=== PATIENT | male | born 1965 | race Caucasian/White ===

== ENCOUNTER 2017-12-06 16:38 | Inpatient (IN) | payer SELFPAY ==
[2017-12-06] VITALS (13 sets, daily range): BP systolic 127–203; BP diastolic 59–108; PULSE 52–65; RESP 16–18; TEMP 97.7; O2SAT 95–100
[~2017-12-06] VITALS: Ht 185.4 cm; Wt 100.5 kg
[~2017-12-06 16:38] MED LIST: IBUP-238 PO; PERC10TA27 PO; PRED20 PO; Z.0.NO CURRENT MEDS
[2017-12-06 18:14] LABS: AUTOMATED NEUTROPHIL # 12.5 TH/MM3 (1.8-7.7); BASOPHIL % 0.2 % (0.0-2.0); EOSINOPHIL # 0.1 TH/MM3 (0-0.4); EOSINOPHIL % 0.5 % (0.0-4.0); HEMATOCRIT 44.5 % (39.0-51.0); HEMOGLOBIN 14.6 GM/DL (13.0-17.0); LYMPH % 8.1 % (9.0-44.0); LYMPHOCYTE # 1.2 TH/MM3 (1.0-4.8); MEAN CELL VOLUME 91.9 FL (80.0-100.0); MEAN CORPUSCULAR HEMOGLOBIN 30.1 PG (27.0-34.0); MEAN CORPUSCULAR HGB CONC 32.7 % (32.0-36.0); MEAN PLATELET VOLUME 7.9 FL (7.0-11.0); MONO % 4.5 % (0.0-8.0); MONOCYTE # 0.6 TH/MM3 (0-0.9); NEUT % 86.7 % (16.0-70.0); PLATELET COUNT 289 TH/MM3 (150-450); RED BLOOD COUNT 4.84 MIL/MM3 (4.50-5.90); RED CELL DISTRIBUTION WIDTH 12.7 % (11.6-17.2); WHITE BLOOD COUNT 14.4 TH/MM3 (4.0-11.0)
[2017-12-06] MEDS ORDERED: SODIUM CHLOR 0.9% 1000 ML INJ 1,000 ML IV SCH (18:16)
[2017-12-06 18:24] LABS: CHLORIDE 101 MEQ/L (98-107); SODIUM (NA) 135 MEQ/L (136-145)
[2017-12-06 18:27] LABS: BICARBONATE 24.5 MEQ/L (21.0-32.0); LIPASE 104 U/L (73-393)
[2017-12-06 18:28] LABS: BLOOD UREA NITROGEN 21 MG/DL (7-18); GLUCOSE,RANDOM 139 MG/DL (74-106)
[2017-12-06 18:29] LABS: PROTHROMBIN TIME - PATIENT 10.6 SEC (9.8-11.6)
[2017-12-06 18:30] LABS: ALT (GPT) 35 U/L (12-78); AST (GOT) 30 U/L (15-37)
[2017-12-06] MEDS ORDERED: ATROPINE/SCOPOLAM/HYOSCYAM/PB ELIXIR 10 ML CUP PO ONE (18:30)
[2017-12-06] MEDS ORDERED: FAMOTIDINE 20 MG/2 ML VIAL IV PUSH ONE (18:30)
[2017-12-06] MEDS ORDERED: SODIUM CHLORIDE 0.9% FLUSH 10 ML FLUSH IV FLUSH PRN ×2 (18:30→19:30)
[2017-12-06] MEDS ORDERED: ALUMINUM/MAGNESIUM/SIMETH 30 ML CUP PO ONE (18:30)
[2017-12-06 18:31] LABS: GLOMERULAR FILTRATION RATE 78 ML/MIN (>89)
[2017-12-06 18:32] LABS: TOTAL BILIRUBIN ADULT 0.6 MG/DL (0.2-1.0); TOTAL PROTEIN 7.8 GM/DL (6.4-8.2)
[2017-12-06 18:33] LABS: ALKALINE PHOSPHATASE 79 U/L (45-117)
[2017-12-06 18:35] LABS: TROPONIN I 0.15 NG/ML (0.02-0.05)
--- NOTE | 2017-12-06 19:11 | PD ---
HPI Chief Complaint: Chest Pain Time Seen by Provider: 18:04 Travel History International Travel<30 days: No Contact w/Intl Traveler<30days: No Traveled to known affect area: No History of Present Illness HPI 52-year-old male complains of epigastric abdominal pain, substernal chest pain. Patient states that he has intermittent symptoms for the past week. Patient states that the symptoms usually last about 15 minutes and resolved completely. Patient states the symptoms not associated with exertion. Patient states that she started having burning epigastric pains abdominal pain with radiation to both arms and to the back and neck today. Patient states that the symptomatic worse than usual. Patient denies any coughing congestion fever chills. Patient complains of indigestion feeling. Patient denies any nausea vomiting. Patient states that he had diaphoresis with the pain. Patient denies any history of CAD. Patient denies history of hypertension, diabetes, hyperlipidemia. Patient is a nonsmoker. Patient denies family history of heart disease. PFSH Past Medical History Medical History: Denies Significant Hx Diminished Hearing: No Tetanus Vaccination: > 5 Years Influenza Vaccination: No Past Surgical History Other Surgery: Yes (spinal SX) Social History Alcohol Use: No Tobacco Use: No Substance Use: No Allergies-Medications (Allergen,Severity, Reaction): Coded Allergies: No Known Allergies (Verified Adverse Reaction, Unknown, 12/06/17) Reported Meds & Prescriptions Reported Meds & Active Scripts Active Review of Systems General / Constitutional: No: Fever Eyes: No: Visual changes HENT: No: Headaches Cardiovascular: Positive: Chest Pain or Discomfort Respiratory: No: Shortness of Breath Gastrointestinal: Positive: Abdominal Pain Genitourinary: No: Dysuria Musculoskeletal: No: Pain Skin: No Rash Neurologic: No: Weakness Psychiatric: No: Depression Endocrine: No: Polydipsia Hematologic/Lymphatic: No: Easy Bruising Physical Exam Narrative GENERAL: Well-nourished, well-developed patient. SKIN: Focused skin assessment warm/dry. HEAD: Normocephalic. EYES: No scleral icterus. No injection or drainage. NECK: Supple, trachea midline. No JVD or lymphadenopathy. CARDIOVASCULAR: Regular rate and rhythm without murmurs, gallops, or rubs. RESPIRATORY: Breath sounds equal bilaterally. No accessory muscle use. GASTROINTESTINAL: Abdomen soft, nondistended. Patient has mild to moderate tenderness and palpation epigastric area. No rebound tenderness. No mass. MUSCULOSKELETAL: No cyanosis, or edema. BACK: Nontender without obvious deformity. No CVA tenderness. Neurologic exam normal. Data Data Last Documented VS Vital Signs Date Time Temp Pulse Resp B/P (MAP) Pulse Ox O2 Delivery O2 Flow Rate FiO2 12/06/17 18:19 183/100 (127) 12/06/17 17:56 65 18 98 Room Air 12/06/17 16:48 97.7 Orders Orders Electrocardiogram (12/06/17 16:49) Electrocardiogram (12/06/17 18:04) Complete Blood Count With Diff (12/06/17 18:04) Comprehensive Metabolic Panel (12/06/17 18:04) Creatine Kinase (Cpk) (12/06/17 18:04) Troponin I (12/06/17 18:04) Prothrombin Time / Inr (Pt) (12/06/17 18:04) Act Partial Throm Time (Ptt) (12/06/17 18:04) Lipase (12/06/17 18:04) Chest, Single Ap (12/06/17 18:04) Iv Access Insert/Monitor (12/06/17 18:04) Ecg Monitoring (12/06/17 18:04) Oximetry (12/06/17 18:04) Sodium Chlor 0.9% 1000 Ml Inj (Ns 1000 M (12/06/17 18:16) Sodium Chloride 0.9% Flush (Ns Flush) (12/06/17 18:30) Famotidine Inj (Pepcid Inj) (12/06/17 18:30) Al-Mag Hy-Si 40-40-4 Mg/Ml Liq (Mag-Al P (12/06/17 18:30) Dnxlg-Umrkan-Wmzfnk-Pb Liq ( Liq (12/06/17 18:30) Labs Laboratory Tests Test 12/06/17 18:00 White Blood Count 14.4 TH/MM3 Red Blood Count 4.84 MIL/MM3 Hemoglobin 14.6 GM/DL Hematocrit 44.5 % Mean Corpuscular Volume 91.9 FL Mean Corpuscular Hemoglobin 30.1 PG Mean Corpuscular Hemoglobin Concent 32.7 % Red Cell Distribution Width 12.7 % Platelet Count 289 TH/MM3 Mean Platelet Volume 7.9 FL Neutrophils (%) (Auto) 86.7 % Lymphocytes (%) (Auto) 8.1 % Monocytes (%) (Auto) 4.5 % Eosinophils (%) (Auto) 0.5 % Basophils (%) (Auto) 0.2 % Neutrophils # (Auto) 12.5 TH/MM3 Lymphocytes # (Auto) 1.2 TH/MM3 Monocytes # (Auto) 0.6 TH/MM3 Eosinophils # (Auto) 0.1 TH/MM3 Basophils # (Auto) 0.0 TH/MM3 CBC Comment DIFF FINAL Differential Comment Prothrombin Time 10.6 SEC Prothromb Time International Ratio 1.0 RATIO Activated Partial Thromboplast Time 22.9 SEC Blood Urea Nitrogen 21 MG/DL Creatinine 1.00 MG/DL Random Glucose 139 MG/DL Total Protein 7.8 GM/DL Albumin 4.0 GM/DL Calcium Level 9.0 MG/DL Alkaline Phosphatase 79 U/L Aspartate Amino Transf (AST/SGOT) 30 U/L Alanine Aminotransferase (ALT/SGPT) 35 U/L Total Bilirubin 0.6 MG/DL Sodium Level 135 MEQ/L Potassium Level 4.0 MEQ/L Chloride Level 101 MEQ/L Carbon Dioxide Level 24.5 MEQ/L Anion Gap 10 MEQ/L Estimat Glomerular Filtration Rate 78 ML/MIN Total Creatine Kinase 297 U/L Troponin I 0.15 NG/ML Lipase 104 U/L MDM Medical Decision Making Medical Screen Exam Complete: Yes Emergency Medical Condition: Yes Medical Record Reviewed: Yes Interpretation(s) EKG shows sinus rhythm nonspecific ST-T wave changes. CBC WBC 14.4. 86 neutrophil. BUN 21. Troponin 0.15. Differential Diagnosis Differential diagnosis including gastritis, PUD, pancreatitis, angina, NV, PE, pneumothorax. Narrative Course 52-year-old male with epigastric pain, substernal chest pain with radiation to both arms and to the neck area. I spoke with Dr. Rojas, social security specialist on-call. Advised [facility] admission and serial EKG and cardiac enzyme and heparin and nothing mouth after midnight for possible cardiac catheter in a.m. Diagnosis Primary Impression: NSTEMI (non-ST elevated myocardial infarction) Admitting Information Admitting Physician Requests: Admit Agapito Weaver MD Dec 06, 2017 19:11
[2017-12-06] MEDS ORDERED: HEPARIN-D5W 25,000 U/250 ML 250 ML IV PRN (19:15)
[2017-12-06] MEDS ORDERED: HEPARIN SODIUM - IV 10,000 UNITS/10 ML VIAL IV ONE (19:15)
[2017-12-06] MEDS ORDERED: NITROGLYCERIN 2% OINT 1 GM PACKET TOPICAL ONE (19:15)
[2017-12-06] MEDS ORDERED: NITROGLYCERIN 0.4 MG SL 25 TABS/BTL SL PRN (19:30)
--- NOTE | 2017-12-06 19:36 | RADRPT ---
EXAM DATE/TIME: 12/06/2017 18:43 [facility] COMPARISON: No previous studies available for comparison. INDICATIONS : Chest pain. MEDICAL HISTORY : None. SURGICAL HISTORY : None. ENCOUNTER: Initial ACUITY: 1 day PAIN SCORE: 8/10 LOCATION: Bilateral chest FINDINGS: A single view of the chest demonstrates the lungs to be symmetrically aerated without evidence of mas s, infiltrate or effusion. The cardiomediastinal contours are unremarkable. Osseous structures are intact. CONCLUSION: 1. No active disease. Donald Connelly MD on December 06, 2017 at 19:33 Board Certified Radiologist. This report was verified electronically.
[2017-12-06] MEDS: FAMOTIDINE 20 MG TAB PO SCH (21:31)
[2017-12-06] MEDS: SODIUM CHLORIDE 0.9% FLUSH 10 ML FLUSH IV FLUSH SCH (21:32)
[2017-12-06] MEDS: MORPHINE SULFATE 2 MG/ML INJ IV PUSH PRN (23:02)
[2017-12-07] VITALS (14 sets, daily range): BP systolic 135–158; BP diastolic 67–84; PULSE 50–62; RESP 12–16; TEMP 97.9–98.3; O2SAT 96–99
--- NOTE | 2017-12-07 00:30 | EKG ---
Date Performed: 12/06/2017 Time Performed: 18:08:01 PTAGE: 52 years EKG: Sinus rhythm NORMAL ECG PREVIOUS TRACING : 12/06/2017 16.52 Since the prior tracing, there has been no significant lugo DOCTOR: Laci Quintero Interpretating Date/Time 12/07/2017 00:30:15
[2017-12-07 00:36] LABS: TROPONIN I 2.06 NG/ML (0.02-0.05)
--- NOTE | 2017-12-07 00:38 | EKG ---
Date Performed: 12/06/2017 Time Performed: 16:52:01 PTAGE: 52 years EKG: Sinus rhythm POSSIBLE LEFT VENTRICULAR HYPERTROPHY MINIMAL ST ELEVATION INFERIORLY ABNORMAL ECG NO PREVIOUS TRACING DOCTOR: Laci Quintero Interpretating Date/Time 12/07/2017 00:37:17
[2017-12-07] MEDS ORDERED: ASPI-516 CHEW (01:06)
[2017-12-07] MEDS ORDERED: IBUP1TAB7 PO (01:06)
[2017-12-07] MEDS ORDERED: NITROGLYCERIN-D5W 50 MG/250 ML 250 ML IV PRN (01:30)
[2017-12-07] MEDS: MORPHINE SULFATE 2 MG/ML INJ IV PUSH PRN ×2 (01:47→07:35)
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
[2017-12-07] MEDS ORDERED: LORazepam 0.5 MG TAB PO ONE (02:45)
[2017-12-07 03:33] LABS: AUTOMATED NEUTROPHIL # 8.4 TH/MM3 (1.8-7.7); BASOPHIL % 0.3 % (0.0-2.0); EOSINOPHIL % 0.4 % (0.0-4.0); HEMOGLOBIN 13.8 GM/DL (13.0-17.0); LYMPH % 13.9 % (9.0-44.0); LYMPHOCYTE # 1.5 TH/MM3 (1.0-4.8); MEAN CORPUSCULAR HEMOGLOBIN 31.7 PG (27.0-34.0); MEAN CORPUSCULAR HGB CONC 35.2 % (32.0-36.0); MEAN PLATELET VOLUME 7.6 FL (7.0-11.0); MONO % 6.7 % (0.0-8.0); MONOCYTE # 0.7 TH/MM3 (0-0.9); NEUT % 78.7 % (16.0-70.0); PLATELET COUNT 277 TH/MM3 (150-450); RED BLOOD COUNT 4.33 MIL/MM3 (4.50-5.90); RED CELL DISTRIBUTION WIDTH 13.1 % (11.6-17.2); WHITE BLOOD COUNT 10.7 TH/MM3 (4.0-11.0)
[2017-12-07 03:51] LABS: BICARBONATE 27.2 MEQ/L (21.0-32.0); CALCIUM 8.8 MG/DL (8.5-10.1); CREATININE 0.91 MG/DL (0.60-1.30)
[2017-12-07 06:15] LABS: BILIRUBIN, URINE NEG (NEG); BLOOD, URINE NEG (NEG); GLUCOSE,URINE NEG (NEG); KETONE, URINE NEG (NEG); MUCUS URINE FEW /lpf (OCC); NITRITE,URINE NEG (NEG); URINE COLOR YELLOW (YELLW/STRAW); URINE LEUKOCYTE ESTERASE NEG (NEG)
[2017-12-07 06:57] LABS: BICARBONATE 25.4 MEQ/L (21.0-32.0); CALCIUM 8.7 MG/DL (8.5-10.1)
[2017-12-07 06:58] LABS: CREATININE 0.78 MG/DL (0.60-1.30)
[2017-12-07 07:29] LABS: TROPONIN I 4.99 NG/ML (0.02-0.05)
[2017-12-07] MEDS ORDERED: IOHEXOL 350 MG/ML 100 ML BTL (for Cath Lab) OTHER ONE (07:58)
[2017-12-07] MEDS ORDERED: ASPIRIN 325 MG TAB PO SCH (09:00)
[2017-12-07] MEDS: FAMOTIDINE 20 MG TAB PO SCH ×3 (09:00→20:49)
[2017-12-07] MEDS: SODIUM CHLORIDE 0.9% FLUSH 10 ML FLUSH IV FLUSH SCH ×2 (09:00→20:47)
--- NOTE | 2017-12-07 09:23 | HHI.PR ---
Subjective Remarks f/u for NSTEMI Patient stated that he had some chest pain earlier this morning he was given morphine in which the chest pain resolved but he is very drowsy. At the moment no chest pain. Denied any soreness of breathing, palpitation, lightheaded and his dizziness. Patient has no other complaints. Objective Vitals Vital Signs Date Time Temp Pulse Resp B/P (MAP) Pulse Ox O2 Delivery O2 Flow Rate FiO2 12/07/17 08:39 14 12/07/17 08:00 97.9 57 14 158/83 (108) 98 12/07/17 07:00 Nasal Cannula 2.00 12/07/17 07:00 53 12/07/17 07:00 60 157/93 12/07/17 06:44 61 157/82 12/07/17 06:30 60 161/88 12/07/17 06:00 60 176/101 12/07/17 05:45 55 167/97 12/07/17 05:00 98.2 16 99 12/07/17 05:00 60 172/91 12/07/17 04:00 Nasal Cannula 2.00 12/07/17 04:00 66 158/74 12/07/17 03:15 54 152/79 12/07/17 03:00 60 148/77 12/07/17 02:46 56 154/80 12/07/17 02:31 57 139/78 12/07/17 02:00 Nasal Cannula 2.00 12/07/17 01:30 50 12/07/17 00:45 59 12/07/17 00:45 98.1 52 15 149/79 (102) 97 12/07/17 00:05 58 16 146/75 (98) 96 12/06/17 23:30 60 16 155/78 (103) 96 Room Air 12/06/17 23:00 58 16 151/84 (106) 97 Room Air 12/06/17 22:30 58 16 159/77 (104) 97 Room Air 12/06/17 22:00 52 18 149/79 (102) 100 Room Air 12/06/17 21:30 59 16 146/75 (98) 98 Room Air 12/06/17 21:00 64 18 127/59 (81) 96 Room Air 12/06/17 20:30 56 16 176/88 (117) 97 Room Air 12/06/17 20:00 60 18 183/89 (120) 95 Room Air 12/06/17 19:09 63 18 97 Room Air 12/06/17 19:09 63 18 181/97 (125) 97 Room Air 12/06/17 18:19 183/100 (127) 12/06/17 17:56 65 18 188/100 (129) 98 Room Air 12/06/17 17:32 16 97 Room Air 12/06/17 17:20 17 97 Room Air 12/06/17 16:48 97.7 63 16 203/108 (139) 97 I/O 12/06/17 12/06/17 12/06/17 12/07/17 12/07/17 12/07/17 07:00 15:00 23:00 07:00 15:00 23:00 Intake Total 1000 ml Output Total 800 ml Balance 200 ml Intake IV Total 1000 ml Output Urine Total 800 ml Result Diagram: 12/07/17 0255 12/07/17 0539 Objective Remarks GENERAL: in NAD CARDIOVASCULAR: Regular rate and rhythm without murmurs, gallops, or rubs. RESPIRATORY: Breath sounds equal bilaterally. No accessory muscle use. GASTROINTESTINAL: Abdomen soft, non-tender, nondistended. MUSCULOSKELETAL: No cyanosis, or edema. BACK: Nontender without obvious deformity. No CVA tenderness. Medications and IVs Current Medications Sodium Chloride 1,000 ml @ 125 mls/hr Q8H IV Last administered on 12/06/17at 18 :31; Start 12/06/17 at 18:16; Stop 12/07/17 at 02:15; Status DC Sodium Chloride (NS Flush) 2 ml UNSCH PRN IV FLUSH FLUSH AFTER USING IV ACCESS ; Start 12/06/17 at 18:30; Stop 12/06/17 at 20:16; Status DC Famotidine (Pepcid Inj) 20 mg ONCE ONCE IV PUSH Last administered on at 18:31; Start 12/06/17 at 18:30; Stop 12/06/17 at 18:39; Status DC Al Hydrox/Mg Hydrox/Simethicone (Mag-Al Plus Susp Liq) 30 ml ONCE ONCE PO Last administered on 12/06/17at 18:31; Start 12/06/17 at 18:30; Stop 12/06/17 at 18:39; Status DC Atropine/Hyoscyam/ Phenobarb/Scopol ( Liq) 10 ml ONCE ONCE PO Last administered on 12/06/17at 18:31; Start 12/06/17 at 18:30; Stop 12/06/17 at 18:39 ; Status DC Heparin Sodium (Porcine) (Heparin Inj) 4,000 units ONCE ONCE IV Last administered on 12/06/17at 19:52; Start 12/06/17 at 19:15; Stop 12/06/17 at 19:16 ; Status DC Heparin Sodium/ Dextrose 250 ml @ 10 mls/hr TITRATE PRN IV Coagulation Management Last administered on 12/06/17at 20:57; Start 12/06/17 at 19:15 Nitroglycerin (Nitroglycerin 2% Oint) 1 inch ONCE ONCE TOPICAL Last administered on 12/06/17at 19:51; Start 12/06/17 at 19:15; Stop 12/06/17 at 19:16 ; Status DC Sodium Chloride (NS Flush) 2 ml BID IV FLUSH Last administered on 12/06/17at 21: 32; Start 12/06/17 at 21:00 Sodium Chloride (NS Flush) 2 ml UNSCH PRN IV FLUSH FLUSH AFTER USING IV ACCESS ; Start 12/06/17 at 19:30 Aspirin (Aspirin) 325 mg DAILY PO ; Start 12/07/17 at 09:00 Nitroglycerin (Nitrostat Sl) 0.4 mg Q5M PRN SL ANGINA; Start 12/06/17 at 19:30 Acetaminophen (Tylenol) 500 mg Q4H PRN PO HEADACHE; Start 12/06/17 at 19:30 Morphine Sulfate (Morphine Inj) 2 mg Q3H PRN IV PUSH PAIN 6-10 Last administered on 12/07/17at 07:35; Start 12/06/17 at 20:15 Famotidine (Pepcid) 20 mg BID PO Last administered on 12/06/17at 21:31; Start at 21:00 Nitroglycerin/ Dextrose 250 ml @ 1.5 mls/hr TITRATE PRN IV Chest pain relief Last administered on 12/07/17at 02:31; Start 12/07/17 at 01:30 Lorazepam (Ativan) 0.5 mg ONCE ONCE PO ; Start 12/07/17 at 02:45; Stop at 02:46; Status DC A/P Problem List: (1) NSTEMI (non-ST elevated myocardial infarction) ICD Code: I21.4 - Non-ST elevation (NSTEMI) myocardial infarction Status: Acute Assessment and Plan Mr. Flynn is an otherwise healthy 52 year-old male who presented to the ED in [place] complaining of epigastric pain radiating up the front of his neck and down his arms. He was found to have Troponin I of 0.15 in ED and the casino runner recommended that the patient transfer to [facility] for cardiac cath in the a.m. NSTEMI - Patient scheduled for a cardiac catheterization today. Continue with heparin drip, nitroglycerin drip, aspirin, morphine as needed for chest pain. Beta jing was not given due to low heart rate. - Patient scheduled for a catheterization today. Anxiety - s/p Ativan 0.5 mg p.o. x one dose and monitor Leukocytosis - likely secondary to stress response - Resolved. Most likely secondary to inflammation from NSTEMI. DVT prophylaxis - on IV heparin Discharge Planning Patient scheduled for cardiac catheterization today. Vesta Peguero MD Dec 07, 2017 09:23
[2017-12-07] MEDS ORDERED: METOPROLOL TARTRATE 25 MG TAB PO SCH (14:30)
[2017-12-07] MEDS: ATORVASTATIN 80 MG TAB PO SCH (14:30)
--- NOTE | 2017-12-07 14:53 | MB ---
cc: ASHLEE WEEKS DATE OF CONSULTATION: 12/07/2017 HISTORY OF PRESENT ILLNESS A 52-year-old male with no previous cardiac history, developed epigastric pain radiating into his neck and down his arms. His last troponin was 0.15. He was found to have mildly elevated troponin and he was admitted to [facility] for further evaluation. He was started on heparin. He has had improvement of his discomfort. He has not had any previous cardiac history. PAST MEDICAL HISTORY Past medical history is negative for hypertension, dyslipidemia, diabetes mellitus, coronary artery disease or CVA. History of elbow injury and ruptured appendix. MEDICATION Aspirin, ibuprofen. ALLERGIES None. SOCIAL HISTORY Patient does not smoke but he used to smoke in the past. He does not drink alcohol excessively. The patient is . His is present. FAMILY HISTORY Family history is negative for heart disease in direct relatives. REVIEW OF SYSTEMS Review of systems is otherwise negative. PHYSICAL EXAMINATION VITAL SIGNS: Blood pressure 150/84, pulse 54 and regular. HEENT: Negative. NECK: 2+ carotid upstrokes. No bruits. LUNGS: Clear. HEART: Regular with no murmur, gallop or rub. ABDOMEN: Soft. No bruits. EXTREMITIES: Without edema. 2+ distal pulses. NEUROLOGIC: Grossly nonfocal. EKG EKG was reviewed and showed normal sinus rhythm, nonspecific ST changes. This is unchanged from his prior EKGs. LABORATORY DATA Hemoglobin 13.8, potassium 3.7, creatinine 0.8. Troponin 0.15, 2.06 and 4.99, CK 297, 382 and 543. DIAGNOSIS Iap-SH-voytdpfyh myocardial infarction. DISPOSITION Mr. Flynn will continue his current medical program including aspirin, nitroglycerin, heparin. He was started on beta jing and statin. We will proceed with cardiac catheterization and coronary intervention if necessary today. The patient and his understand the risks and benefits, and wish to proceed. MD LYNDSEY Morrison/FRANCESCO /2:05 PM /2:29 PM CITLALY
[2017-12-07] MEDS ORDERED: HEPARIN-NS/PF INJ 1,000 ML ONE (17:44)
[2017-12-07] MEDS ORDERED: NITROGLYCERIN INJ 5 ML ONE (17:45)
[2017-12-07] MEDS ORDERED: HEPARIN SODIUM - IV 10,000 UNITS/10 ML VIAL ONE (17:45)
[2017-12-07] MEDS ORDERED: MIDAZOLAM HCL 5 MG/5 ML VIAL ONE (17:45)
[2017-12-07] MEDS ORDERED: ASPIRIN 325 MG TAB ONE (18:31)
[2017-12-07] MEDS ORDERED: CLOPIDOGREL 300 MG TAB ONE (18:31)
[2017-12-07] MEDS ORDERED: TICAGRELOR 90 MG TAB PO ONE (18:37)
[2017-12-07] MEDS ORDERED: SODIUM CHLOR 0.9% 1000 ML INJ 1,000 ML IV SCH (18:54)
--- NOTE | 2017-12-07 18:56 | CATHPROC ---
Between HIS Report Study Information Study Number Admission Scheduled Start Study Start [id number] Dec 06 2017 7:14PM 12/07/2017 Dec 07 2017 5:20PM [place] Service Cardiac Catheterization Admit Source Facility Department Emergency department [facility] - [facility] Physician and Clinical Staff Initial Lilly Campbell Wheat Washer Dorinda Acosta,SEBASTIAN Other cathlab, cathlab Recorder Lisseth Sotomayor,DARI Scrub Mary Ellen Goldberg,RT(R) Procedures Performed Procedure Location (Site) Vessel Name Angiogram LV LV Ventricle Coronary Angiograms LCA Left Coronary Coronary Angiograms RCA Right Coronary Drug Eluting Inflatio RCA Dist Right Coronary L Heart Cath PTCA RCA Dist Right Coronary Wire insertion Fem Art (right) Femoral Art Equipment Time Monument Setter Description Size Mfg Part Number Used/Scraped WIRE, BALANCE MIDDLEWEIGHT [id number] 18:08 [employer] 190CM Used 190CM ([facility]) *[id number] TRANSDUCER, TRUWAVE [id number] 17:24 ROGER GARCIA * Used W/STOCKCOCK *[id number] *[id number] *[id number] 18:39 DAIG/[employer]. LIL[employer] MEDICAL ANGIOSEAL, FR6 VIP FR 6 Used *[id number] 17:24 Tradono INDUSTRIES PACK, CCL CUSTOM * Used *[id number] 17:24 Tradono PACER PEN, SKIN DUAL W/ RULER * Used *[id number] 18:12 MEDTRONIC BALLOON, 2.0 X 12MM EUPHORA 12MM Used *[id number] 18:14 MEDTRONIC CATHETER, EXPORT ASPIRATON Used *[id number] 17:55 MEDTRONIC JL 4.0 DXTERITY CATHETER FR 5 Used *[id number] 18:24 MEDTRONIC STENT, 2.5 12MM ABEL 2.5 12MM Used *[id number] 18:15 EcoIntense 30 CHRIS INDEFLATOR Used *[id number] 17:55 [employer] PIGTAIL ANG. CATHETER FR 5 Used *[id number] SHEATH, FR6 RADIAL PRELUDE 18:09 OK[employer]in MEDICAL FR 6 [id number] Used EASE 11CM [id number] 18:09 [employer] MEDICAL SHEATH, FR6.5 PRELUDE 11CM FR 6.5 038ACT Used *[id number] 17:24 [employer] MEDICAL WIRE, 3MMJ .035 180CM 180CM Used *[id number] PROBE COVER, STERILE [id number] 17:24 [employer]Guard MEDICAL * Used ULTRASOUND W/ GEL *[id number] 17:24 NAMIC MANIFOLD, 4 PORT * Used *[id number] 17:24 NAMIC TUBING, HIGH PRESSURE 48" 48" Used *[id number] 17:24 NYCOMED OMNIPAQUE, 350 MG, 150ML 150ML [id number] Used [id number] 17:24 MONSALVE [employer] BLANKET,WARM AIR CCL * Used *[id number] 17:24 TERUMO MEDICAL SHEATH, FR5 TERUMO (10CM) FR 5 Used *[id number] Equipment Model, Serial, Lot Number and Expiration Data Description Model Number Serial Number Lot Number Expiration Date ANGIOSEAL, FR6 VIP [id number] 09-12-2018 JL 4.0 DXTERITY CATHETER [id number] 06-14-2020 PIGTAIL ANG. CATHETER [id number] 05-12-2020 STENT, 2.5 12MM ABEL [id number] 08-17-2018 History: Allergies Allergy Reaction No Known Allergies History: Risk Factors Family History of Hypertension Dyslipidemia Previous HI Previous Heart Failure Premature CAD No No No No No Prior Valve Prior PCI Prior CABG Surgery No No No Cerebrovascular Peripheral Artery Chronic Lung On Dialysis Diabetes Disease Disease Disease No No No No No History: Symptoms/Diagnosis Selection Items Chest pain History: Stress Tests Stress or Imaging Studies Performed No History: Other Current Smoker Method Quit Packs a Day Years Used Pack Years No Cigarettes 6 Years Ago 12 12 30 Labs Hgb (g/dl) Hct (%) RBC (MIL/MM3) Platelets (thousands) 11.60-17.00 35.00-51.00 4.00-5.90 150.00-450.00 14.6 44.5 4.8 289 Glucose (mg/dl) BUN (mg/dl) Creatinine (mg/dl) BUN:Creatinine (1:x) 74.00-106.00 7.00-18.00 0.50-1.30 10.00-20.00 139 21 1.0 21 K (meq/l) Cl (meq/l) Ca (mg/dl) 3.50-5.10 98.00-107.00 8.50-10.10 4 101 39 PT (sec) PTT (sec) INR (PTT:PT) 9.80-11.60 24.30-30.10 0.90-1.10 10.6 26.5 1 Troponin I (ng/ml) CPK (u/l) CPK-MB (ng/ML) 0.02-0.05 26.00-308.00 0.50-3.60 4.9 50.8 Not Drawn Medication Medication Total Dose (Bolus/Oral) Medication Total Dosage/Unit 1% XYLOCAINE 20 mL FENTANYL 50 mcg HEPARIN 9100 units NTG (IC) 400 mcg VERSED 2 mg Medications (Bolus/Oral) Medication Time Given Dosage/Unit Administered By Reason HEPARIN 12/07/2017 5:35:35 PM 1100 units Patient arrived on 1100 units HEPARIN via Peripheral IV. VERSED 12/07/2017 5:55:50 PM 2 mg Dorinda Acosta 2 mg VERSED given in lab by Dorinda Acosta RN via Peripheral IV. FENTANYL 12/07/2017 5:56:00 PM 50 mcg Dorinda Acosta 50 mcg FENTANYL given in lab by Dorinda Acosta RN via Peripheral IV. 1% XYLOCAINE 12/07/2017 5:57:23 PM 20 mL Lilly Flores 20 mL 1% XYLOCAINE given in lab by Lilly Flores via Subcutaneous. HEPARIN 12/07/2017 6:07:08 PM 8000 units Dorinda Acosta 8000 units HEPARIN given in lab by Dorinda Acosta, SEBASTIAN via Peripheral IV. NTG (IC) 12/07/2017 6:23:30 PM 100 mcg Mary Ellen Goldberg 100 mcg NTG (IC) given in lab by Mary Ellen Goldberg RT(R) via Intra-coronary. NTG (IC) 12/07/2017 6:33:34 PM 100 mcg Mary Ellen Goldberg 100 mcg NTG (IC) given in lab by Mary Ellen Goldberg RT(R) via Intra-coronary. NTG (IC) 12/07/2017 6:35:25 PM 200 mcg Mary Ellen Goldberg 200 mcg NTG (IC) given in lab by Mary Ellen Goldberg RT(R) via Intra-coronary. Medication (Drip) Medication Time Given Dosage/Unit Concentration/Unit Diluent (ml) Solution NITROGLYCERIN DRIP 12/07/2017 5:37:26 PM 12 mcg/min 40 mg 250 D5W Patient arrived on 12 mcg/min NITROGLYCERIN DRIP via Peripheral IV. Pump/Drip Flow = 4.5 ml/hr using D5W with a concentration of 40 mg in 250 ml. Initial Case Assessment Cardiovascular HR Rhythm NIBP Chest Pain 59 nsr 152/70 0 Edema Present Skin color Skin None Normal Warm Dry Circulatory - Right Pulses Dorsalis Pedis Femoral 3 3 Scale (0,1,2,3,4,d) Circulatory - Left Pulses Dorsalis Pedis Femoral 3 3 Scale (0,1,2,3,4,d) Neurological State Oriented to time-place- Alert Moves all extremities person Respiration - General Respiration Rate SpO2 (%) O2 (lpm) (B/min) 20 95 0 Chronological Log Time Study Chronological Log 17:33:10 Patient arrived via Bed. 17:33:11 Patient Name, D.O.B, / Armband Verified By R.N. 17:33:13 Consent signed by the physician and the patient and verified by the [facility] staff. 17:34:35 Verbal Stimulation=2 Physical Stimulation=2 Airway=2 Respiration=2 TOTAL=8. (0=absent, 1=li mited, 2=present) 17:34:53 Patient has been NPO for More than 6Hrs. 17:34:54 Skin Breakdown- none 17:35:07 A # 20 IV was noted in the Antecubital (left). Grade = 0 17:35:19 A # 20 IV was noted in the Antecubital (right). Grade = 0 17:35:35 Patient arrived on 1100 units HEPARIN via Peripheral IV. Patient arrived on 12 mcg/min NITROGLYCERIN DRIP via Peripheral IV. Pump/Drip Flow = 4.5 ml/hr using D5W with a 17:37:26 concentration of 40 mg in 250 ml. Assessment: Initial Case, HR=59 BPM, Rhythm=nsr, DGXW=020/70 mmhg, Chest Pain=0, Edema=None, Co alec=Normal, Skin = Warm, Dry Right Pulses: Dong Ped=3, Femoral=3 17:41:07 Left Pulses: Dong Ped=3, Femoral=3 Neurological: State=Alert, Ox3, SOLOMON Respiration: Resp=20 B/min, SpO2=95 %, O2=0 lpm Vitals capture started with the following parameters, Patient=Adult, Interval=5 min, Initial Pr iuzaha=587 mmHg, 17:41:13 Deflation Rate=5 mmHg, Cuff placed on Left Arm Vitals capture started with the following parameters, Patient=Adult, Interval=5 min, Initial Pr ohgdiu=445 mmHg, 17:42:08 Deflation Rate=5 mmHg, Cuff placed on Left Arm 17:42:47 HR=60 bpm, FPQI=234/70 mmhg, SpO2=94.0 %, Resp=15 B/min, Pain=0, Norma=10, Triplett=2 17:44:42 MD arrived. 17:44:46 Contrast Scanned 17:44:47 Immediate Presedation assesment performed by physician. 17:44:49 Bilateral groins prepped with 2% chlorhexidine, and draped after a 3 minute waiting time. 17:45:25 Reference ECG taken 17:48:25 HR=58 bpm, GMRW=254/77 mmhg, SpO2=96.0 %, Resp=18 B/min, Pain=0, Norma=10, Triplett=2 17:50:48 MD arrived. 17:52:40 Pressure channel 1 zeroed. 17:52:49 HR=57 bpm, DDJX=822/80 mmhg, SpO2=96.0 %, Resp=20 B/min, Pain=0, Norma=10, Triplett=2 17:55:20 heparin turn off 17:55:50 2 mg VERSED given in lab by Dorinda Acosta, SEBASTIAN via Peripheral IV. 17:56:00 50 mcg FENTANYL given in lab by Dorinda Acosta, SEBASTIAN via Peripheral IV. Time Out. Correct patient, correct procedure, correct physician, power injector loaded, with co ntrast with surgical team 17:56:36 present. Time Out Concurred by MD and individual staff in procedure. 17:56:50 Case Start 17:57:23 20 mL 1% XYLOCAINE given in lab by Lilly Flores via Subcutaneous. 17:57:41 Access site was Right Femoral Artery. 17:57:55 A SHEATH, FR5 TERUMO (10CM) FR 5 was advanced into the Fem Art (right) using the Percutaneo us technique. 17:58:14 A WIRE, 3MMJ .035 180CM 180CM was inserted via Fem Art (right). 17:58:25 HR=55 bpm, KWKA=022/78 mmhg, SpO2=95.0 %, Resp=19 B/min, Pain=0, Norma=10, Triplett=2 A PIGTAIL ANG. CATHETER FR 5 was advanced over a wire. OMNIPAQUE, 350 MG, 150ML 150ML was used for 17:59:03 injections. 17:59:04 Wire removed Recorded Pressure: LV, HR=56, Condition=Condition 1 17:59:30 (Left Ventricle) LV 107/13/12 18:00:52 The LV was injected at 10 cc/sec for a total of 30. OMNIPAQUE, 350 MG, 150ML 150ML used. Recorded Pressure: LV, Ao, HR=57, Condition=Condition 1 18:01:46 (Left Ventricle) LV 127/12/17, (Aorta) Ao 150/50/91 18:02:05 Catheter was removed 18:02:47 HR=54 bpm, XQER=077/84 mmhg, SpO2=97.0 %, Resp=19 B/min, Pain=0, Norma=10, Triplett=2 Recorded Pressure: Ao, HR=56, Condition=Condition 1 18:03:00 (Aorta) Ao 120/64/87 A JL 4.0 DXTERITY CATHETER FR 5 was advanced over a wire. OMNIPAQUE, 350 MG, 150ML 150ML was us ed for 18:03:09 injections. 18:03:21 The LCA was injected and visualized at various angles. OMNIPAQUE, 350 MG, 150ML 150ML used . 18:05:02 Catheter was removed A AR MOD INFINITI CATHETER FR 5 was advanced over a wire. OMNIPAQUE, 350 MG, 150ML 150ML was us ed for 18:05:09 injections. 18:05:32 The RCA was injected and visualized at various angles. OMNIPAQUE, 350 MG, 150ML 150ML used . 18:07:08 8000 units HEPARIN given in lab by Dorinda Acosta, SEBASTIAN via Peripheral IV. 18:07:31 Catheter was removed 18:07:48 HR=58 bpm, EITK=257/88 mmhg, SpO2=97.0 %, Resp=20 B/min, Pain=0, Norma=10, Triplett=2 A SHEATH, FR6.5 PRELUDE 11CM FR 6.5 was exchanged in the Fem Art (right). This was necessary in order to 18:09:41 accomodate a larger catheter. A CATHETER, EXPORT ASPIRATON was advanced over a wire. OMNIPAQUE, 350 MG, 150ML 150ML was used for 18:09:53 injections. 18:11:07 A WIRE, BALANCE MIDDLEWEIGHT 190CM (RHONDA) 190CM was inserted via Fem Art (right). 18:12:56 HR=59 bpm, ZQPB=527/75 mmhg, SpO2=97.0 %, Resp=20 B/min, Pain=0, Norma=10, Triplett=2 18:14:29 Catheter was removed 18:14:30 A AR 1 GUIDE CATHETER FR 6 was advanced over a wire. OMNIPAQUE, 350 MG, 150ML 150ML was use d for injections. A BALLOON, 2.0 X 12MM EUPHORA 12MM was inserted over WIRE, BALANCE MIDDLEWEIGHT 190CM (RHONDA) 19 0CM 18:14:41 via the RCA Dist. A BALLOON, 2.0 X 12MM EUPHORA 12MM over a WIRE, BALANCE MIDDLEWEIGHT 190CM (RHONDA) 190CM in the RCA 18:15:19 Dist was inflated using a 30 CHRIS INDEFLATOR at 10 chris for 15 sec. A BALLOON, 2.0 X 12MM EUPHORA 12MM over a WIRE, BALANCE MIDDLEWEIGHT 190CM (RHONDA) 190CM in the RCA 18:16:08 Dist was inflated using a 30 CHRIS INDEFLATOR at 10 chris for 12 sec. A BALLOON, 2.0 X 12MM EUPHORA 12MM over a WIRE, BALANCE MIDDLEWEIGHT 190CM (RHONDA) 190CM in the RCA 18:16:44 Dist was inflated using a 30 CHRIS INDEFLATOR at 14 chris for 16 sec. A BALLOON, 2.0 X 12MM EUPHORA 12MM over a WIRE, BALANCE MIDDLEWEIGHT 190CM (RHONDA) 190CM in the RCA 18:17:16 Dist was inflated using a 30 CHRIS INDEFLATOR at 12 chris for 7 sec. 18:17:53 HR=63 bpm, LFML=590/80 mmhg, SpO2=98.0 %, Resp=20 B/min, Pain=0, Norma=10, Triplett=2 A BALLOON, 2.0 X 12MM EUPHORA 12MM over a WIRE, BALANCE MIDDLEWEIGHT 190CM (RHONDA) 190CM in the RCA 18:18:11 Dist was inflated using a 30 CHRIS INDEFLATOR at 15 chris for 23 sec. A BALLOON, 2.0 X 12MM EUPHORA 12MM over a WIRE, BALANCE MIDDLEWEIGHT 190CM (RHONDA) 190CM in the RCA 18:18:25 Dist was inflated using a 30 CHRIS INDEFLATOR at 15 chris for 12 sec. A BALLOON, 2.0 X 12MM EUPHORA 12MM over a WIRE, BALANCE MIDDLEWEIGHT 190CM (RHONDA) 190CM in the RCA 18:20:01 Dist was inflated using a 30 CHRIS INDEFLATOR at 16 chris for 25 sec. A BALLOON, 2.0 X 12MM EUPHORA 12MM over a WIRE, BALANCE MIDDLEWEIGHT 190CM (RHONDA) 190CM in the RCA 18:20:13 Dist was inflated using a 30 CHRIS INDEFLATOR at 10 chris for 12 sec. 18:20:45 ACT (Normal Range 90-180) = 420 18:21:01 Balloon Removed. 18:22:54 HR=67 bpm, HWTO=321/83 mmhg, SpO2=98.0 %, Resp=20 B/min, Pain=0, Norma=10, Triplett=2 18:23:30 100 mcg NTG (IC) given in lab by Mary Ellen Goldberg RT(R) via Intra-coronary. A STENT, 2.5 12MM ABEL 2.5 12MM was advanced through a AR 1 GUIDE CATHETER FR 6 over a WIRE, BA MARK 18:24:44 MIDDLEWEIGHT 190CM (RHONDA) 190CM. A STENT, 2.5 12MM ABEL 2.5 12MM was deployed using a 30 CHRIS INDEFLATOR at 12 atmospheres for 26 seconds in 18:27:13 the RCA Dist. 18:27:53 HR=69 bpm, EOLG=862/74 mmhg, SpO2=95.0 %, Resp=26 B/min, Pain=0, Norma=10, Triplett=2 18:29:22 Delivery device removed 18:29:53 A balloons was inserted over WIRE, BALANCE MIDDLEWEIGHT 190CM (RHONDA) 190CM via the RCA Dist . A BALLOON, 2.0 X 12MM EUPHORA 12MM over a WIRE, BALANCE MIDDLEWEIGHT 190CM (RHONDA) 190CM in the RCA 18:30:36 Dist was inflated using a 30 CHRIS INDEFLATOR at 13 chris for 30 sec. A BALLOON, 2.0 X 12MM EUPHORA 12MM over a WIRE, BALANCE MIDDLEWEIGHT 190CM (RHONDA) 190CM in the RCA 18:31:35 Dist was inflated using a 30 CHRIS INDEFLATOR at 25 chris for 20 sec. 18:32:54 HR=68 bpm, HFEG=875/75 mmhg, SpO2=98.0 %, Resp=24 B/min, Pain=0, Norma=10, Triplett=2 18:33:17 Balloon Removed. 18:33:34 100 mcg NTG (IC) given in lab by Mary Ellen Goldberg RT(R) via Intra-coronary. 18:35:25 200 mcg NTG (IC) given in lab by Mary Ellen Goldberg RT(R) via Intra-coronary. 18:35:49 Wire removed 18:37:34 Catheter was removed 18:38:07 An injection in the Fem Art (right) was made through the SHEATH, FR6.5 PRELUDE 11CM FR 6.5. 18:38:19 HR=66 bpm, ZDLJ=206/84 mmhg, SpO2=97.0 %, Resp=20 B/min, Pain=0, Norma=10, Triplett=2 18:39:27 No case complications noted. 18:39:30 ANGIOSEAL, FR6 VIP FR 6 placement in the Fem Art (right) 18:40:12 Case End 18:40:13 Cine recording checked. 18:40:16 Holding Area notified of successful intervention. 18:40:23 Bedside Report will be given. 18:40:28 Implantable Device card placed in patient's chart. 18:43:27 HR=73 bpm, LLDI=317/73 mmhg, SpO2=98.0 %, Resp=20 B/min, Pain=0, Norma=10, Triplett=2 18:46:12 Vitals capture stopped. 18:46:52 A Left [facility] was performed. 18:46:[facility] - Cont[facility] Media Used In Study Contrast Total Opened (mL) Total Used (mL) Total Wasted (mL) Omnipaque 175 175 0 End Study - Maximum Contrast Load Max Contrast Load (mL) 498.0 End Study - Radiation Exposure Fluoro Time (minutes) 9.5 End Study - Patient Disposition Complications Transferred To Interventional Outcome No Telemetry Bed successful
[2017-12-07] MEDS ORDERED: MISC INFORMATION XX ONE (19:00)
[2017-12-07] MEDS: METOPROLOL TARTRATE 25 MG TAB PO SCH (20:47)
--- NOTE | 2017-12-07 23:47 | EKG ---
Date Performed: 12/07/2017 Time Performed: 00:46:18 PTAGE: 52 years EKG: Sinus bradycardia Prolonged QT interval Lateral ST elevation - possible early repolarizatio n Borderline ECG PREVIOUS TRACING : 12/06/2017 18.08 Since the prior tracing, there has been no significant lugo DOCTOR: Laci Quintero Interpretating Date/Time 12/07/2017 23:46:57
[2017-12-08] VITALS (18 sets, daily range): BP systolic 113–154; BP diastolic 58–88; PULSE 51–66; RESP 17–18; TEMP 98–98.4; O2SAT 95–98
[2017-12-08] MEDS: ACETAMINOPHEN 500 MG CPLT PO PRN ×2 (03:21→11:23)
[2017-12-08] MEDS: FAMOTIDINE 20 MG TAB PO SCH (08:42)
[2017-12-08] MEDS: METOPROLOL TARTRATE 25 MG TAB PO SCH (08:43)
[2017-12-08] MEDS: ATORVASTATIN 80 MG TAB PO SCH (08:44)
[2017-12-08] MEDS: SODIUM CHLORIDE 0.9% FLUSH 10 ML FLUSH IV FLUSH SCH (08:45)
[2017-12-08] MEDS ORDERED: TICAGRELOR 90 MG TAB PO SCH (09:00)
[2017-12-08] MEDS ORDERED: ASPIRIN 81 MG CHEW TAB PO SCH (09:00)
[2017-12-08] MEDS ORDERED: METO25TA3 PO (09:07)
[2017-12-08] MEDS ORDERED: BRIL90TA PO (09:07)
[2017-12-08] MEDS ORDERED: ATOR80TA45 PO (09:07)
[2017-12-08] MEDS ORDERED: NITR0.4S SL (09:07)
[2017-12-08] MEDS ORDERED: ASPI81 PO (09:07)
[2017-12-08] MEDS ORDERED: LISI10TA3 PO (09:09)
--- NOTE | 2017-12-08 09:11 | HHI.DS ---
Discharge Summary Admission Date Dec 06, 2017 at 19:14 Admitting Diagnosis NSTEMI (1) NSTEMI (non-ST elevated myocardial infarction) ICD Code: I21.4 - Non-ST elevation (NSTEMI) myocardial infarction Status: Acute Brief History - From Admission Mr. Flynn is an otherwise healthy 52 year-old male who presented to the ED in [place] complaining of epigastric pain radiating up the front of his neck and down his arms. He was found to have Troponin I of 0.15 in ED and the bag sealer recommended that the patient transfer to [facility] for cardiac cath in the a.m. The patient is seen in the [facility]. He tells me he was driving home from work when he developed abrupt onset of epigastric pain radiating down both arms and causing arms to feel cold and also radiating up the anterior aspect of his neck. Symptoms were accompanied by diaphoresis and shortness of breath. Symptoms are worse with exertion. He had a similar episode last week that lasted for about 1 - 2 hours and spontaneously resolved. His pain is described as a burning sensation. He denies any associated nausea, vomiting, or palpitations. He does report feeling stressed recently. He does not have a PCP. He denies any recent fevers, chills, n/v, diarrhea, or cold/flu symptoms. CBC/BMP: 12/07/17 0255 12/07/17 0539 Significant Findings Laboratory Tests Test 12/06/17 18:00 12/07/17 00:01 12/07/17 02:55 12/07/17 05:39 White Blood Count 14.4 TH/MM3 (4.0-11.0) Neutrophils (%) (Auto) 86.7 % (16.0-70.0) 78.7 % (16.0-70.0) Lymphocytes (%) (Auto) 8.1 % (9.0-44.0) Neutrophils # (Auto) 12.5 TH/MM3 (1.8-7.7) 8.4 TH/MM3 (1.8-7.7) Activated Partial Thromboplast Time 22.9 SEC (24.3-30.1) Blood Urea Nitrogen 21 MG/DL (7-18) Random Glucose 139 MG/DL (74-106) 120 MG/DL (74-106) 119 MG/DL (74-106) Sodium Level 135 MEQ/L (136-145) Estimat Glomerular Filtration Rate 78 ML/MIN (>89) 87 ML/MIN (>89) Troponin I 0.15 NG/ML (0.02-0.05) 2.06 NG/ML (0.02-0.05) 4.99 NG/ML (0.02-0.05) Total Creatine Kinase 382 U/L (39-308) 543 U/L (39-308) Creatine Kinase MB 26.9 NG/ML (0.5-3.6) 50.8 NG/ML (0.5-3.6) Creatine Kinase MB % 7.0 % (0.0-4.0) 9.4 % (0.0-4.0) Red Blood Count 4.33 MIL/MM3 (4.50-5.90) Test 12/07/17 05:50 12/07/17 11:40 Urine Mucus FEW /lpf (OCC) PE at Discharge GENERAL: in NAD CARDIOVASCULAR: Regular rate and rhythm without murmurs, gallops, or rubs. RESPIRATORY: Breath sounds equal bilaterally. No accessory muscle use. GASTROINTESTINAL: Abdomen soft, non-tender, nondistended. MUSCULOSKELETAL: No cyanosis, or edema. BACK: Nontender without obvious deformity. No CVA tenderness. Pt Condition on Discharge: Good Discharge Disposition: Discharge Home Discharge Instructions DIET: Follow Instructions for: Heart Healthy Diet Activities you can perform: See Additionl Instruction Other Activity Instructions: As directed by your bag sealer. Vesta Peguero MD Dec 08, 2017 09:11
--- NOTE | 2017-12-08 09:11 | HHI.DCPOC ---
Discharge Care Plan Diagnosis: (1) NSTEMI (non-ST elevated myocardial infarction) Goals to Promote Your Health * To prevent worsening of your condition and complications * To maintain your health at the optimal level Directions to Meet Your Goals Take your medications as prescribed Follow your dietary instruction Follow activity as directed Keep your appointments as scheduled Take your immunizations and boosters as scheduled If your symptoms worsen call your PCP, if no PCP go to Urgent Care Center or Emergency Room Smoking is Dangerous to Your Health. Avoid second hand smoke Call the 24-hour hour crisis hotline for domestic abuse at Vesta Peguero MD Dec 08, 2017 09:11
[2017-12-08] MEDS ORDERED: LISINOPRIL 10 MG TAB PO SCH (09:15)
[2017-12-08 10:01] LABS: AUTOMATED NEUTROPHIL # 7.4 TH/MM3 (1.8-7.7); BASOPHIL % 0.2 % (0.0-2.0); EOSINOPHIL % 0.3 % (0.0-4.0); HEMATOCRIT 37.6 % (39.0-51.0); HEMOGLOBIN 13.4 GM/DL (13.0-17.0); LYMPH % 17.3 % (9.0-44.0); LYMPHOCYTE # 1.7 TH/MM3 (1.0-4.8); MEAN CORPUSCULAR HEMOGLOBIN 32.4 PG (27.0-34.0); MEAN CORPUSCULAR HGB CONC 35.6 % (32.0-36.0); MEAN PLATELET VOLUME 7.7 FL (7.0-11.0); MONO % 8.3 % (0.0-8.0); MONOCYTE # 0.8 TH/MM3 (0-0.9); NEUT % 73.9 % (16.0-70.0); PLATELET COUNT 233 TH/MM3 (150-450); RED BLOOD COUNT 4.14 MIL/MM3 (4.50-5.90); RED CELL DISTRIBUTION WIDTH 12.9 % (11.6-17.2)
[2017-12-08 10:29] LABS: BICARBONATE 25.7 MEQ/L (21.0-32.0); CALCIUM 8.8 MG/DL (8.5-10.1); CREATININE 1.06 MG/DL (0.60-1.30)
[2017-12-08 10:33] LABS: CHOLESTEROL/ HDL RATIO 3.83 RATIO; HDL CHOLESTEROL 42.5 MG/DL (40.0-60.0)
--- NOTE | 2017-12-08 10:50 | EKG ---
Date Performed: 12/08/2017 Time Performed: 05:19:34 PTAGE: 52 years EKG: Sinus rhythm Normal ECG PREVIOUS TRACING : 12/07/2017 00.46 Compared to previous tracing, early repolarization is now l ess evident. DOCTOR: Casa Reyes Interpretating Date/Time 12/08/2017 10:49:57
--- NOTE | 2017-12-08 19:43 | PD.CARD.PN ---
Subjective Subjective Remarks No CP or SOB, feels fine Objective Vital Signs / I&O Vital Signs Date Time Temp Pulse Resp B/P (MAP) Pulse Ox O2 Delivery O2 Flow Rate FiO2 12/08/17 14:00 62 12/08/17 13:00 57 12/08/17 12:33 18 12/08/17 12:00 51 12/08/17 12:00 98.4 58 17 133/76 (95) 97 12/08/17 11:00 55 12/08/17 10:00 62 12/08/17 09:00 57 12/08/17 08:00 57 12/08/17 08:00 98.2 56 18 154/88 (110) 96 12/08/17 07:15 96 Room Air 12/08/17 07:00 55 12/08/17 06:23 66 12/08/17 05:03 59 12/08/17 04:04 60 12/08/17 04:01 98.0 62 126/67 (86) 98 12/08/17 03:00 58 12/08/17 02:16 55 12/08/17 01:11 59 12/08/17 00:09 98.0 62 113/58 (76) 95 12/08/17 00:00 58 12/07/17 23:00 59 12/07/17 22:07 Room Air 12/07/17 22:00 60 12/07/17 21:00 56 12/07/17 20:00 98.0 60 135/67 (89) 96 12/07/17 20:00 56 I/O 12/07/17 12/07/17 12/07/17 12/08/17 12/08/17 12/08/17 07:00 15:00 23:00 07:00 15:00 23:00 Intake Total 1000 ml 0 ml 480 ml 960 ml Output Total 800 ml 350 ml 1180 ml 1000 ml Balance 200 ml -350 ml -700 ml -40 ml Intake Oral 0 ml 480 ml 960 ml IV Total 1000 ml Output Urine Total 800 ml 350 ml 1180 ml 1000 ml Physical Exam GENERAL: In NAD SKIN: Warm and dry. HEAD: Normocephalic. EYES: No scleral icterus. No injection or drainage. NECK: Supple, trachea midline. No JVD or lymphadenopathy. CARDIOVASCULAR: Regular rate and rhythm without murmurs, gallops, or rubs. RESPIRATORY: Breath sounds equal bilaterally. No accessory muscle use. GASTROINTESTINAL: Abdomen soft, non-tender, nondistended. MUSCULOSKELETAL: No cyanosis, or edema. Groin stable Laboratory Laboratory Tests Test 12/08/17 09:17 White Blood Count 10.0 TH/MM3 Red Blood Count 4.14 MIL/MM3 Hemoglobin 13.4 GM/DL Hematocrit 37.6 % Mean Corpuscular Volume 91.0 FL Mean Corpuscular Hemoglobin 32.4 PG Mean Corpuscular Hemoglobin Concent 35.6 % Red Cell Distribution Width 12.9 % Platelet Count 233 TH/MM3 Mean Platelet Volume 7.7 FL Neutrophils (%) (Auto) 73.9 % Lymphocytes (%) (Auto) 17.3 % Monocytes (%) (Auto) 8.3 % Eosinophils (%) (Auto) 0.3 % Basophils (%) (Auto) 0.2 % Neutrophils # (Auto) 7.4 TH/MM3 Lymphocytes # (Auto) 1.7 TH/MM3 Monocytes # (Auto) 0.8 TH/MM3 Eosinophils # (Auto) 0.0 TH/MM3 Basophils # (Auto) 0.0 TH/MM3 CBC Comment DIFF FINAL Differential Comment Blood Urea Nitrogen 14 MG/DL Creatinine 1.06 MG/DL Random Glucose 135 MG/DL Calcium Level 8.8 MG/DL Sodium Level 136 MEQ/L Potassium Level 3.6 MEQ/L Chloride Level 103 MEQ/L Carbon Dioxide Level 25.7 MEQ/L Anion Gap 7 MEQ/L Estimat Glomerular Filtration Rate 73 ML/MIN Total Creatine Kinase 495 U/L Creatine Kinase MB 23.2 NG/ML Creatine Kinase MB % 4.7 % Triglycerides Level 111 MG/DL Cholesterol Level 163 MG/DL LDL Cholesterol 98 MG/DL HDL Cholesterol 42.5 MG/DL Cholesterol/HDL Ratio 3.83 RATIO Assessment and Plan Problem List: (1) NSTEMI (non-ST elevated myocardial infarction) ICD Codes: I21.4 - Non-ST elevation (NSTEMI) myocardial infarction (2) CAD (coronary artery disease) ICD Codes: I25.10 - Atherosclerotic heart disease of [place] coronary artery without angina pectoris (3) Stented coronary artery ICD Codes: Z95.5 - Presence of coronary angioplasty implant and graft Assessment and Plan No angina or CHF. Groin benign. DC home. Continue tx with Brilinta and baby ASA for at least one year, also continue beta jing and statin. F/u w PCP shortly after discharge. Lilly Flores MD Dec 08, 2017 19:43
--- NOTE | 2017-12-10 21:30 | MA ---
cc: ASHLEE WEEKS DATE 12/07/2017 INDICATION [id number] myocardial infarction. PROCEDURE PERFORMED 1. Retrograde left heart catheterization with left ventriculography and selective coronary angiography. 2. Thrombectomy, angioplasty and stenting of the distal right coronary artery. 3. Moderate sedation. ACCESS SITE Right femoral artery. EQUIPMENT USED 5 Afghan pigtail catheter, 5 Afghan JL4 and AR modified coronary artery catheters. Medtronic compliant balloon 2.0 x 12 mm. Medtronic [place] stent at 12 atmospheres. Noncompliant 2.75 x 6 mm balloon at 25 atmospheres. MEDICATIONS 1. Versed IV. 2. Fentanyl IV. 3. Heparin IV. 4. Brilinta 180 milligrams p.o. 5. Aspirin 325 milligrams p.o. CONTRAST Omnipaque 175 cc. COMPLICATIONS None. ESTIMATED BLOOD LOSS Less than 10 cc. METHOD OF HEMOSTASIS Angio-Seal closure. RESULTS HEMODYNAMICS Heart rate 70 beats per minute Left ventricular end-diastolic pressure 12 mmHg Left ventricle 125/12 Aorta 125/64/87 LEFT VENTRICULOGRAPHY Ejection fraction 50%. Wall motion: inferobasal hypokinesis, no mitral regurgitation. CORONARY ANGIOGRAPHY Left main coronary artery patent. Left anterior descending artery has 20% stenosis in the mid portion. D-1 is patent. Left circumflex artery is patent. OM-1 patent. Ramus intermedius patent. Right coronary artery is totally occluded in the distal portion with thrombus. Distal right coronary artery fills by left to right collaterals. Lesion length 8 mm. Pre RADHA flow zero. Post RADHA flow III. Post stenosis zero. This was a type C lesion. Post intervention angiography showed excellent patency of the stented segment and no evidence of dissection, thrombosis or distal embolization. DIAGNOSES 1. Coronary artery disease with total occlusion of the distal right coronary artery with distal vessel filling by collaterals. 2. Borderline normal left ventricular systolic function. 3. Successful thrombectomy, angioplasty and stenting of the distal right coronary artery. DISPOSITION Mr. Flynn will be monitored on telemetry after his procedure. We will continue long-term therapy with Brilinta and aspirin. We will also continue aggressive modification of his cardiac risk factors. MD LYNDSEY Morrison/FINA /6:48 PM /9:00 PM [place]
== END 2017-12-08 14:36 | disposition home or self-care (01) | DRG 247 ==
LOC: PHED 16:38 → PHEDA 19:14 → HCIN 12-07 00:34 → HCIS 12-07 12:55
PROVIDERS: ADMIT Family Medicine; ATTEND Family Medicine
PROC: 027034Z Dilation of Coronary Artery, One Artery with Drug-eluting Intraluminal Device, Percutaneous Approach (ICD-10-PCS; principal; 2017-12-07)
PROC: 02C03ZZ Extirpation of Matter from Coronary Artery, One Artery, Percutaneous Approach (ICD-10-PCS; 2017-12-07)
PROC: 4A023N7 Measurement of Cardiac Sampling and Pressure, Left Heart, Percutaneous Approach (ICD-10-PCS; 2017-12-07)
PROC: B2111ZZ Fluoroscopy of Multiple Coronary Arteries using Low Osmolar Contrast (ICD-10-PCS; 2017-12-07)
PROC: B2151ZZ Fluoroscopy of Left Heart using Low Osmolar Contrast (ICD-10-PCS; 2017-12-07)
DX: I21.4 Non-ST elevation (NSTEMI) myocardial infarction (principal); D72.829 Elevated white blood cell count, unspecified; F41.9 Anxiety disorder, unspecified; I25.10 Atherosclerotic heart disease of native coronary artery without angina pectoris; Z87.891 Personal history of nicotine dependence
CPT/HCPCS: 71045; 80048; 80053; 80061; 81001; 82550; 82552; 83690; 84484; 85002; 85025; 85610; 85730; 92928; 92973; 93005; 93458; 96361; 96374; C1725; C1757; C1760; C1769; C1874; C1887; C1893; G0269; J1644; J2250; J2270; J3010; J7030; Q9967